=== PATIENT | male | born 1965 | race Caucasian/White ===

== ENCOUNTER 2020-04-11 03:06 | Emergency (ER) | payer MEDICAID ==
[~2020-04-11] VITALS: Ht 188 cm; Wt 117.9 kg
--- NOTE | 2020-04-11 03:07 | NUR ---
BIBRA 909 FOR C/O BLE PAIN AND SWELLING . PT WAS D/C'D FROM [facility] 2 WKS AGO ONN ATB AND DIURETICS & HE RAN OUT OF THEM 4 DAYS AGO; pt aaox4, -sob, -cp, placed on monitor, not in any acute distress, vss. pending er provider dre
[2020-04-11] MEDS ORDERED: DOXYCYCLINE 100 MG VIAL ONE (03:28)
[2020-04-11] MEDS ORDERED: CEPHALEXIN MONOHYDRATE 500 MG CAPSULE PO ONE (03:28)
[2020-04-11] MEDS ORDERED: BUMETANIDE INJ 0.25 MG/ML VIAL ONE (03:28)
[2020-04-11] MEDS: DOXYCYCLINE 100 MG in IV D5W 100 ML IV ONE (03:56)
[2020-04-11] MEDS: BUMETANIDE INJ 0.25 MG/ML VIAL IV ONE (03:56)
[2020-04-11] MEDS: CEPHALEXIN MONOHYDRATE 500 MG CAPSULE PO ONE (03:56)
--- NOTE | 2020-04-11 04:30 | NUR ---
45min ETA by [facility] back to [facility]: [id number] [address] [facility]. [phone]
--- NOTE | 2020-04-11 05:20 | NUR ---
Patient discharged to home in stable condition. Written and verbal after care instructions given. Patient verbalizes understanding of instruction. IV removed. Catheter intact and site benign. Pressure and 4x4 applied to site. No bleeding noted.
--- NOTE | 2020-04-11 05:21 | NUR ---
resident picked up private transport provided by [facility]
[2020-04-11] MEDS: DIVALPROEX SODIUM 500 MG TABLET.DR PO ONE (05:22)
[2020-04-11 05:24] VITALS: BP 122/75
== END 2020-04-11 05:24 | disposition home or self-care (01) ==
LOC: ER 03:10
DX: R60.0 Localized edema (principal); F31.9 Bipolar disorder, unspecified; F17.200 Nicotine dependence, unspecified, uncomplicated; Z96.642 Presence of left artificial hip joint; Z88.2 Allergy status to sulfonamides; Z88.8 Allergy status to other drugs, medicaments and biological substances
CPT/HCPCS: 96365; 96375; 99284; J3490 ×3; J7060 ×2

== ENCOUNTER 2020-04-14 21:39 | Emergency (ER) | payer MEDICAID ==
[~2020-04-14] VITALS: Ht 185.4 cm; Wt 116.1 kg
--- NOTE | 2020-04-14 22:45 | NUR ---
PT BIBRA C/O BILATERAL LOWER EXT PAIN AND SWELLING. NOTED REDDNESS. PT RECENTLY DISCHARGED FROM [facility] AND WAS UNABLE TO REFILL ANTIBIOTIC PRESCRIPTIONS. PT AAOX4. RESPIRATIONS EVEN AND UNLABORED. SKIN WARM AND INTACT. VITAL SIGNS STABLE. AMBULATORY WITH STEADY GAIT. NO ACUTE DISTRESS NOTED AT THIS TIME. WILL CONTINUE TO MONITOR
[2020-04-14] MEDS ORDERED: VANCOMYCIN 1 GM VIAL ONE (23:23)
[2020-04-14] MEDS ORDERED: BUMETANIDE (1 MG) 1 MG TABLET ONE (23:24)
[2020-04-14] MEDS ORDERED: BUMETANIDE (1 MG) 1 MG TABLET PO ONE (23:30)
[2020-04-14] MEDS ORDERED: VANCOMYCIN 1 GM in IV D5W 250 ML IV ONE (23:30)
--- NOTE | 2020-04-15 01:15 | NUR ---
Patient discharged to home in stable condition. Written and verbal after care instructions given. Patient verbalizes understanding of instruction.IV removed. Catheter intact and site benign. Pressure and 4x4 applied to site. No bleeding noted.
[2020-04-15 01:35] VITALS: BP 122/84
== END 2020-04-15 01:35 | disposition home or self-care (01) ==
LOC: ER 21:40
DX: L03.116 Cellulitis of left lower limb (principal); L03.115 Cellulitis of right lower limb; I87.8 Other specified disorders of veins; F17.200 Nicotine dependence, unspecified, uncomplicated; F31.9 Bipolar disorder, unspecified; Z96.642 Presence of left artificial hip joint; Z88.2 Allergy status to sulfonamides; Z88.8 Allergy status to other drugs, medicaments and biological substances
CPT/HCPCS: 96365; 99284; J3370